=== PATIENT | female | born 1950 | race Caucasian/White ===

== ENCOUNTER 2017-10-24 08:22 | Day surgery (SDC) | payer MEDICARE, BC ==
[~2017-10-24 08:22] MED LIST: Bupivacaine 0.75% 30 ML SDV ONE; EPINEPHrine 1 MG/ML SDV ONE; Ketamine 500 mg/10 ML MDV ONE; Lactated Ringers 1,000 ML IV SCH; Lidocaine 1% 14 ML ONE; Lidocaine 1%/Sod Bicarbonate in NS 8.4% 1 ML Syringe IDERM PRN; Midazolam 1 MG/ML 2 ML SDV ONE; Phenylephrine/Normal Saline 100 MCG/ML 10 ML Syringe ONE; Propofol 200 MG/20 ML SDV ONE; Ropivacaine 0.5% 5 MG/ML 30 ML SDV ONE; Sodium Chloride 0.9% 10 ML Syringe FLUSH PRN; fentaNYL 100 MCG/2 ML SDV ONE
[2017-10-24] MEDS ORDERED: Acetaminophen 325 MG Tab PO SCH (08:42)
[2017-10-24] MEDS ORDERED: Scopolamine 1.5 MG Transdermal Patch TOP ONE (08:42)
[2017-10-24] MEDS ORDERED: Pregabalin 25 MG Cap PO SCH (08:43)
[2017-10-24] MEDS ORDERED: oxyCODONE ER 10 MG TAB.ER PO SCH (08:43)
--- NOTE | 2017-10-24 09:03 | PCM.PREANE ---
Preanesthetic Assessment - Anesthesia/Transfusion/Family Hx Anesthesia History: Prior Anesthesia Reaction Type of Anesthesia Reaction: Excessive Nausea/Vomiting Family History of Anesthesia Reaction: No - Review of Systems General: No Symptoms Pulmonary: No Symptoms Cardiovascular: No Symptoms Gastrointestinal: No Symptoms Neurological: Pre-Existing Deficit (Chronic low back pain. Left side sciatica at times, none currently. ) Other: Reports: Anxiety - Physical Assessment NPO Status Date: 10/23/17 NPO Status Time: 23:30 Pulse: 76 O2 Sat by Pulse Oximetry: 97 Respiratory Rate: 16 Blood Pressure: 147/82 Temperature: 36.4 C Weight: 79.832 kg ASA Class: 2 Mental Status: Alert & Oriented x3 Airway Class: Mallampati = 2 Dentition: Reports: Normal Dentition Thyro-Mental Finger Breadths: 2 Mouth Opening Finger Breadths: 3 ROM/Head Extension: Limited/Partial (Limited extension, cervical neck fusion.) Lungs: Clear to Auscultation, Normal Respiratory Effort Cardiovascular: Regular Rate, Regular Rhythm - Lab Values: Laboratory Last Values MRSA (PCR) Negative 10/11/17 15:41 - Allergies Allergies/Adverse Reactions: Allergies Allergy/AdvReac Type Severity Reaction Status Date / Time amoxicillin [From Augmentin] Allergy "intoleranc Verified 10/21/17 14:03 e" clavulanic acid Allergy "intoleranc Verified 10/21/17 14:03 [From Augmentin] e" - Acknowledgements Anesthesia Type Planned: Spinal Pt an Appropriate Candidate for the Planned Anesthesia: Yes Alternatives and Risks of Anesthesia Discussed w Pt/Guardian: Yes Pt/Guardian Understands and Agrees with Anesthesia Plan: Yes Additional Comments: Peri is agreeable to a a spinal anesthetic. She has a spinal with her last total knee surgery. She understands it could aggravate her back pain. Discussed with Dr. Ang he is also agreeable with a spinal anesthetic. Peri does have significant PONV. 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 Neurological History: Other Dermatologic History: Lipomas to bilateral upper thighs sx - Past Surgical History HEENT Surgical History: Reports: None GI Surgical History: Reports: Cholecystectomy Neurological Surgical History: Reports: Other (See Below) Other Neurological Surgeries/Procedures: Cervical Disc Replacement Musculoskeletal Surgical History: Reports: Arthroscopic Knee Other Musculoskeletal Surgeries/Procedures:: L. TKA, R. CTR, R. Ulnar Nerve Sx, L. Knee Arthroscopy, Chronic Sciatica Left Side, Left Hip Pain Dermatological Surgical History: - HOME MEDS Home Medications: Home Meds Losartan/Hydrochlorothiazide [Losartan-HCTZ 50-12.5 MG] 1 tab PO DAILY 02/11/15 [History] Pantoprazole [ProTONIX] 40 mg PO DAILY PRN 02/11/15 [History] Celecoxib [CeleBREX] 100 mg PO DAILY 10/21/17 [History] LORazepam [Ativan] 1 mg PO ASDIRECTED PRN 10/21/17 [History] Potassium Chloride 20 meq PO DAILY 10/21/17 [History] Zolpidem Tartrate 10 mg PO DAILY 10/21/17 [History] - CURRENT (IN HOUSE) MEDS Current Meds: Current Medications Aspirin (Ecotrin) 325 mg PO BID [facility] Bisacodyl (Dulcolax) 5 mg PO DAILY PRN PRN Reason: Constipation Morphine Sulfate 8 mg/Epinephrine HCl 0.3 mg/Cefuroxime Sodium 750 mg/Ketorolac Tromethamine 30 mg/Sodium Chloride 27.9 ml 0 mg .XX ONETIME ONE Stop: 10/24/17 10:31 Cyclobenzaprine HCl (Flexeril) 10 mg PO TID PRN PRN Reason: Spasms Docusate Sodium (Colace) 100 mg PO BID [facility] Lactated Ringer's (Ringers, Lactated) 1,000 mls @ 125 mls/hr IV ASDIRECTED [facility] Stop: 10/24/17 23:00 Cefazolin Sodium/Dextrose 2 gm (/ Premix) 50 mls @ 100 mls/hr IV Q8H [facility] Stop: 10/24/17 23:44 Lidocaine/Sodium Bicarbonate (Buffered Lidocaine 1% In Ns 8.4%) 0.25 ml IDERM ONETIME PRN PRN Reason: Prior to IV Start Stop: 10/24/17 18:00 Magnesium Hydroxide (Milk Of Magnesia) 30 ml PO BID PRN PRN Reason: Constipation Morphine Sulfate (Morphine) 2 mg IVPUSH Q2H PRN PRN Reason: Breakthrough Pain Naloxone HCl (Narcan) 0.1 mg IVPUSH Q5M PRN PRN Reason: Oversedation Ondansetron HCl (Zofran) 4 mg IVPUSH Q6H PRN PRN Reason: Nausea/Vomiting Oxycodone/Acetaminophen (Percocet 325-5 Mg) 1 - 2 tab PO Q4H PRN PRN Reason: Pain Senna (Senna) 8.6 mg PO BID PRN PRN Reason: Constipation Sodium Chloride (Saline Flush) 10 ml FLUSH ASDIRECTED PRN PRN Reason: Keep Vein Open Stop: 10/24/17 18:00 Discontinued Medications Acetaminophen (Tylenol) 975 mg PO NOW [facility] Stop: 10/24/17 08:43 Last Admin: 10/24/17 08:58 Dose: 975 mg Bupivacaine HCl (Sensorcaine-Mpf 0.75%) Confirm Administered Dose 30 ml .ROUTE .STK-MED ONE Stop: 10/24/17 06:17 Bupivacaine HCl (Sensorcaine-Mpf 0.75%) Confirm Administered Dose 30 ml .ROUTE .STK-MED ONE Stop: 10/24/17 06:57 Epinephrine HCl (Adrenalin) Confirm Administered Dose 1 mg .ROUTE .STK-MED ONE Stop: 10/24/17 06:00 Fentanyl (Sublimaze) Confirm Administered Dose 100 mcg .ROUTE .STK-MED ONE Stop: 10/24/17 06:57 Lidocaine HCl (Xylocaine-Mpf 1%) Confirm Administered Dose 14 mls @ as directed .ROUTE .STK-MED ONE Stop: 10/24/17 06:57 Ketamine HCl (Ketalar) Confirm Administered Dose 500 mg .ROUTE .STK-MED ONE Stop: 10/24/17 08:03 Midazolam HCl (Versed 1 Mg/Ml) Confirm Administered Dose 2 mg .ROUTE .STK-MED ONE Stop: 10/24/17 07:59 Oxycodone HCl (Oxycontin) 10 mg PO ONETIME [facility] Stop: 10/24/17 08:44 Last Admin: 10/24/17 08:57 Dose: 10 mg Phenylephrine HCl (Phenylephrine In Ns 100 Mcg/Ml) Confirm Administered Dose 1 mg .ROUTE .STK-MED ONE Stop: 10/24/17 08:00 Pregabalin (Lyrica) 50 mg PO ONETIME [facility] Stop: 10/24/17 08:44 Last Admin: 10/24/17 08:58 Dose: 50 mg Propofol (Diprivan 20 Ml) Confirm Administered Dose 400 mg .ROUTE .STK-MED ONE Stop: 10/24/17 06:57 Ropivacaine (Naropin 0.5%) Confirm Administered Dose 30 ml .ROUTE .STK-MED ONE Stop: 10/24/17 06:00 Scopolamine (Transderm-Scop) 1.5 mg TOP ONETIME ONE Stop: 10/24/17 08:43 Last Admin: 10/24/17 08:57 Dose: 1.5 mg
[2017-10-24] MEDS ORDERED: Bupivacaine 0.25% 30 ML SDV ONE (09:12)
[2017-10-24] MEDS ORDERED: Vancomycin 1 GM SDV ONE (09:12)
[2017-10-24] MEDS ORDERED: Iodine/Sodium Iodide 2% Tincture 30 ML Bottle ONE (09:12)
[2017-10-24] MEDS ORDERED: ceFAZolin 1 GM Vial ONE (09:12)
[2017-10-24] MEDS ORDERED: Lactated Ringers 1,000 ML ONE ×2 (10:03→10:30)
[2017-10-24] MEDS ORDERED: fentaNYL 100 MCG/2 ML SDV IVPUSH PRN (10:08)
[2017-10-24] MEDS ORDERED: Ondansetron 4 MG/2 ML SDV IVPUSH PRN ×2 (10:08→11:00)
[2017-10-24] MEDS ORDERED: ePHEDrine 50 MG/ML SDV IVPUSH PRN (10:08)
[2017-10-24] MEDS ORDERED: HYDROmorphone 0.5 MG/0.5 ML Syringe IVPUSH PRN (10:08)
[2017-10-24] MEDS ORDERED: diphenhydrAMINE 50 MG/ML SDV IVPUSH PRN (10:08)
[2017-10-24] MEDS ORDERED: Phenylephrine 1 MG in Sodium Chloride 0.9% 10 ML IV SCH (10:15)
[2017-10-24] MEDS ORDERED: Morphine 8 MG, EPINEPHrine 0.3 MG, Cefuroxime 750 MG, Ketorolac 30 MG, Sodium Chloride ... ONE ×5 (10:30)
[2017-10-24] MEDS ORDERED: Morphine 2 MG/ML Syringe IVPUSH PRN (11:00)
[2017-10-24] MEDS ORDERED: Bisacodyl 5 MG Tab PO PRN (11:00)
[2017-10-24] MEDS ORDERED: Sennosides 8.6 MG Tab PO PRN (11:00)
[2017-10-24] MEDS ORDERED: Magnesium Hydroxide 400 MG/5 ML Susp 30 ML Cup PO PRN (11:00)
[2017-10-24] MEDS ORDERED: Naloxone 0.4 MG/ML SDV IVPUSH PRN (11:00)
[2017-10-24] MEDS ORDERED: Cyclobenzaprine 10 MG Tab PO PRN (11:00)
--- NOTE | 2017-10-24 11:37 | PCM.POSTAN ---
POST ANESTHESIA ASSESSMENT - MENTAL STATUS Mental Status: Alert - VITAL SIGNS Pulse Rate: 86 SaO2: 95 (2Lpm nasal cannula) Resp Rate: 11 Blood Pressure: 113/54 Temperature: 36.3 C - RESPIRATORY Respiratory Status: Respiratory Rate WNL, Airway Patent, O2 Saturation Stable, Supplemental Oxygen - CARDIOVASCULAR CV Status: Pulse Rate WNL, Blood Pressure Stable - GASTROINTESTINAL GI Status: No Symptoms - POST OP HYDRATION Hydration Status: Adequate & Stable
--- NOTE | 2017-10-24 12:16 | PCM.SN ---
- Free Text/Narrative Note: Left selective femoral nerve block at the adductor canal for post-procedure pain control under US guidance requested by Dr. Ang. Time Out: 1140 Start: 1200 End: 1200 Chart reviewed. Consent signed. Questions answered. Appropriate monitors applied. Time out performed. Left mid-shaft femur identified with ultrasound, scanning medially of femur, the femoral artery in the adductor canal visualized , and the femoral nerve located laterally to the artery. The skin was prepped lateral to the ultrasound probe with chlorahexadine times two. The 21ga 4 insulated block needle was inserted under direct ultrasound guidance into the adductor canal. 25mL of 0.5% ropivacaine with 1:200,000 epinephrine was injected circumferentially around the nerve with intermittent negative aspiration noted. Patient tolerated the procedure well. Sterile technique noted along with sterile gloves, mask, and sterile probe cover. See picture on progress note and vital signs on nurses notes. Block completed in PACU. Chel Gipson CRNA
[2017-10-24] MEDS ORDERED: Pantoprazole 40 MG Tab.CR PO PRN (13:10)
[2017-10-24] MEDS ORDERED: LORazepam 1 MG Tab PO PRN (13:10)
--- NOTE | 2017-10-24 13:13 | CR ---
Left knee: AP and lateral views of the left knee were obtained. Comparison: No prior knee study. Knee prosthesis is seen. Components are aligned. Underlying bony structures are intact. Soft tissue air is noted from the surgical procedure. Impression: 1. Satisfactory appearance of recently placed left knee prosthesis. Diagnostic code #2
[2017-10-24] MEDS: Acetaminophen/oxyCODONE 325-5 MG Tab PO PRN ×2 (15:43→20:23)
[2017-10-24] MEDS: ceFAZolin 2 GM in Premix Bag 1 BAG IV SCH (17:50)
--- NOTE | 2017-10-24 18:32 | PCM.CONS ---
H&P History of Present Illness - General Date of Service: 10/24/17 Admit Problem/Dx: Admission Diagnosis/Problem Admission Diagnosis/Problem Knee pain Source of Information: Patient, Provider History Limitations: Reports: No Limitations - History of Present Illness Initial Comments - Free Text/Narative: Peri is a 67 yo female patient of Dr. Ang who is post-operative day 0 of L knee patello femoral revision. Hospital medicine was consulted for post- operative medical care. At this time she is stable. Pain is controlled. She denies any chest pain, shortness of breath, palpitations, nausea, or vomiting. She carries a history of: Sciatica, hypokalemia, HTN, GERD, menopause. She is not a smoker. She is a full code. Her primary care provider is Dr. Robison. - Related Data Allergies/Adverse Reactions: Allergies Allergy/AdvReac Type Severity Reaction Status Date / Time amoxicillin [From Augmentin] Allergy "intoleranc Verified 10/21/17 14:03 e" clavulanic acid Allergy "intoleranc Verified 10/21/17 14:03 [From Augmentin] e" Home Medications: Home Meds Losartan/Hydrochlorothiazide [Losartan-HCTZ 50-12.5 MG] 1 tab PO DAILY 02/11/15 [History] Pantoprazole [ProTONIX] 40 mg PO DAILY PRN 02/11/15 [History] LORazepam [Ativan] 1 mg PO ASDIRECTED PRN 10/21/17 [History] Potassium Chloride 20 meq PO DAILY 10/21/17 [History] Zolpidem Tartrate 10 mg PO DAILY 10/21/17 [History] Acetaminophen/oxyCODONE [Percocet 325-5 MG] 1 - 2 tab PO Q6H PRN #60 tablet [Rx] Aspirin [Ecotrin] 325 mg PO BID #84 tab.ec 10/24/17 [Rx] Bisacodyl [Dulcolax] 5 mg PO DAILY PRN tablet 10/24/17 [Rx] Docusate Sodium [Colace] 100 mg PO BID cap 10/24/17 [Rx] Magnesium Hydroxide [Milk of Magnesia] 30 ml PO BID PRN cup 10/24/17 [Rx] Sennosides [Senna] 8.6 mg PO BID PRN tablet 10/24/17 [Rx] Past Medical History HEENT History: Reports: Impaired Vision Other HEENT History: Wears Cardiovascular History: Reports: Hypertension, Other (See Below) Other Cardiovascular History: Hypokalemia Gastrointestinal History: Reports: GERD 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 Neurological History: Other Dermatologic History: Lipomas to bilateral upper thighs sx - Past Surgical History HEENT Surgical History: Reports: None GI Surgical History: Reports: Cholecystectomy Neurological Surgical History: Reports: Other (See Below) Other Neurological Surgeries/Procedures: Cervical Disc Replacement Musculoskeletal Surgical History: Reports: Arthroscopic Knee Other Musculoskeletal Surgeries/Procedures:: L. TKA, R. CTR, R. Ulnar Nerve Sx, L. Knee Arthroscopy, Chronic Sciatica Left Side, Left Hip Pain Dermatological Surgical History: H&P Review of Systems - Review of Systems: Review Of Systems: See Below General: Reports: No Symptoms. Denies: Fever, Chills HEENT: Reports: No Symptoms Pulmonary: Reports: No Symptoms. Denies: Shortness of Breath, Pleuritic Chest Pain, Cough Cardiovascular: Reports: No Symptoms. Denies: Chest Pain, Palpitations, Dyspnea on Exertion Gastrointestinal: Reports: No Symptoms. Denies: Abdominal Pain, Diarrhea, Nausea, Vomiting Genitourinary: Reports: No Symptoms. Denies: Dysuria, Frequency, Burning, Pain , Urgency Musculoskeletal: Reports: No Symptoms. Denies: Leg Pain Skin: Reports: No Symptoms Psychiatric: Reports: No Symptoms Neurological: Reports: No Symptoms Hematologic/Lymphatic: Reports: No Symptoms Immunologic: Reports: No Symptoms Exam - Exam Exam: See Below - Vital Signs Vital Signs: Last Vital Signs Temp 97.8 F 10/24/17 13:03 Pulse 60 10/24/17 13:32 Resp 14 10/24/17 12:56 BP 128/49 L 10/24/17 13:32 Pulse Ox 98 10/24/17 13:32 Weight: 176 lb - Exam Quality Assessment: Supplemental Oxygen (2L nasal cannula) General: Alert, Oriented, Cooperative, Mild Distress HEENT: PERRLA, Hearing Intact, Mucosa Moist & Lena, Nares Patent, Normal Nasal Septum, Posterior Pharynx Clear, Conjunctiva Clear, EOMI, EACs Clear, TMs Clear Neck: Supple, Trachea Midline, 2 Lungs: Clear to Auscultation, Normal Respiratory Effort Cardiovascular: Regular Rate, Regular Rhythm GI/Abdominal Exam: Normal Bowel Sounds, Soft, Non-Tender, No Organomegaly, No Distention, No Abnormal Bruit, No Mass, Pelvis Stable (Female) Exam: Deferred Rectal (Female) Exam: Deferred Back Exam: Normal Inspection, Full Range of Motion, NT Extremities: Normal Inspection, Non-Tender, No Pedal Edema, Normal Capillary Refill, Limited Range of Motion (s/p L knee patello femoral revision) Peripheral Pulses: 2+: Posterior Tibial (L), Posterior Tibial (R), Dorsalis Pedis (L), Dorsalis Pedis (R) Skin: Warm, Dry, Intact, Other (bandage dry and intact) Neurological: Cranial Nerves Intact (grossly) Neuro Extensive - Mental Status: Alert, Oriented x3, Normal Mood/Affect, Normal Cognition Psychiatric: Alert, Normal Affect, Normal Mood - Patient Data Pawan Results Last 24 hrs: Microbiology 10/24/17 10:30 Gram Stain - Final Knee, Left 10/24/17 10:30 Gram Stain - Final Knee, Left 10/24/17 10:30 Gram Stain - Final Knee, Left 10/24/17 10:30 Gram Stain - Final Knee, Left Consult PN Assessment/Plan POD#: 0 Procedures: Procedures ASSAY OF AMYLASE (02/11/15) ASSAY OF CREATININE (11/27/13) ASSAY OF LIPASE (02/11/15) BONE IMAGING 3 PHASE (08/30/17) C-REACTIVE PROTEIN (09/21/17) COMPLETE CBC W/AUTO DIFF WBC (02/11/15) COMPREHEN METABOLIC PANEL (02/11/15) EMERGENCY DEPT VISIT (02/11/15) HYDRATE IV INFUSION ADD-ON (02/11/15) MRI JNT OF LWR EXTRE W/O DYE (11/27/13) MRI LUMBAR SPINE W/O DYE (09/26/17) RBC SED RATE AUTOMATED (09/21/17) ROUTINE VENIPUNCTURE (09/21/17) THER/PROPH/DIAG IV INF INIT (02/11/15) TX/PRO/DX INJ NEW DRUG ADDON (02/11/15) TX/PRO/DX INJ 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 DRUG 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) URINALYSIS AUTO W/SCOPE (02/11/15) X-RAY BEND ONLY L-S SPINE (07/20/13) X-RAY EXAM L-S SPINE 2/3 VWS (03/14/17) X-RAY EXAM OF PELVIS (03/14/17) (1) Status post revision of total replacement of left knee SNOMED Code(s): 961909380435604, 988771518940656 Code(s): Z96.652 - PRESENCE OF LEFT ARTIFICIAL KNEE JOINT Priority: High Current Visit: Yes Problem List Initiated/Reviewed/Updated: Yes Plan: I/P: Acute: S/P left knee patello femoral revision- post-operative day 0 -DVT prophylaxis and pain management per primary care team -PT/OT -IS/RT -Monitor oxygen saturation -Titrate oxygen as needed -Vital signs stable -Monitor labs Osteoarthritis of knee -Pain management per primary care team Chronic: Sciatica Hypokalemia HTN GERD Menopause Plan: CM for discharge planning GI prophylaxis: Protonix DVT/PE prophylaxis: ANKIT fam, SCD, ASA Home medications as indicated Other orders as listed above Routine AM labs She is a full code. Her PCP is Dr. Robison. Thank you for allowing us to participate in the care of this patient!!
[2017-10-24] MEDS: Docusate Sodium 100 MG Cap PO SCH (20:24)
[2017-10-25] MEDS: ceFAZolin 2 GM in Premix Bag 1 BAG IV SCH ×2 (02:30→10:08)
[2017-10-25] MEDS: Acetaminophen/oxyCODONE 325-5 MG Tab PO PRN ×3 (03:10→14:28)
--- NOTE | 2017-10-25 07:29 | PCM.SURGPN ---
- General Info Date of Service: 10/25/17 Functional Status: Reports: Pain Controlled, Tolerating Diet, Ambulating, Urinating, Incentive Spirometry - Review of Systems Musculoskeletal: Reports: Other (The pt states she is prepared for discharge to home.) - Patient Data Vitals - Most Recent: Last Vital Signs Temp 97.9 F 10/24/17 15:28 Pulse 63 10/24/17 20:02 Resp 17 10/24/17 15:28 BP 109/59 L 10/24/17 20:02 Pulse Ox 95 10/24/17 20:02 Weight - Most Recent: 176 lb I&O - Last 24 Hours: Intake & Output 10/24/17 10/25/17 10/25/17 22:59 06:59 14:59 Intake Total 360 Balance 360 Lab Results Last 24 Hrs: Laboratory Results - last 24 hr 10/25/17 Range/Units 05:38 WBC 6.29 (3.98-10.04) K/mm3 RBC 3.92 L (3.98-5.22) M/mm3 Hgb 11.4 (11.2-15.7) gm/L Hct 36.0 (34.1-44.9) % MCV 91.8 (79.4-94.8) fl MCH 29.1 (25.6-32.2) pg MCHC 31.7 L (32.2-35.5) g/dl RDW Std Deviation 49.2 H (36.4-46.3) fL Plt Count 256 (182-369) K/mm3 MPV 9.4 (9.4-12.3) fl Pawan Results Last 24 Hrs: Microbiology 10/24/17 10:30 Gram Stain - Final Knee, Left Anaerobic Culture - Preliminary NO GROWTH AFTER 1 DAY 10/24/17 10:30 Gram Stain - Final Knee, Left Anaerobic Culture - Preliminary NO GROWTH AFTER 1 DAY 10/24/17 10:30 Gram Stain - Final Knee, Left Anaerobic Culture - Preliminary NO GROWTH AFTER 1 DAY 10/24/17 10:30 Gram Stain - Final Knee, Left Anaerobic Culture - Preliminary NO GROWTH AFTER 1 DAY Med Orders - Current: Current Medications Aspirin (Ecotrin) 325 mg PO BID [facility] Bisacodyl (Dulcolax) 5 mg PO DAILY PRN PRN Reason: Constipation Cyclobenzaprine HCl (Flexeril) 10 mg PO TID PRN PRN Reason: Spasms Docusate Sodium (Colace) 100 mg PO BID [facility] Last Admin: 10/24/17 20:24 Dose: 100 mg Hydrochlorothiazide (Hydrochlorothiazide) 12.5 mg PO DAILY [facility] Cefazolin Sodium/Dextrose 2 gm (/ Premix) 50 mls @ 100 mls/hr IV Q8H [facility] Stop: 10/25/17 10:29 Last Admin: 10/25/17 02:30 Dose: 100 mls/hr Losartan Potassium (Cozaar) 50 mg PO DAILY [facility] Magnesium Hydroxide (Milk Of Magnesia) 30 ml PO BID PRN PRN Reason: Constipation Morphine Sulfate (Morphine) 2 mg IVPUSH Q2H PRN PRN Reason: Breakthrough Pain Naloxone HCl (Narcan) 0.1 mg IVPUSH Q5M PRN PRN Reason: Oversedation Ondansetron HCl (Zofran) 4 mg IVPUSH Q6H PRN PRN Reason: Nausea/Vomiting Oxycodone/Acetaminophen (Percocet 325-5 Mg) 1 - 2 tab PO Q4H PRN PRN Reason: Pain Last Admin: 10/25/17 03:10 Dose: 1 tab Pantoprazole Sodium (Protonix) 40 mg PO DAILY PRN PRN Reason: Abdominal Pain Potassium Chloride (Klor-Con M20) 20 meq PO DAILY [facility] Senna (Senna) 8.6 mg PO BID PRN PRN Reason: Constipation Zolpidem Tartrate (Ambien) 10 mg PO BEDTIME [facility] Discontinued Medications Acetaminophen (Tylenol) 975 mg PO NOW [facility] Stop: 10/24/17 08:43 Last Admin: 10/24/17 08:58 Dose: 975 mg Bupivacaine HCl (Sensorcaine-Mpf 0.75%) Confirm Administered Dose 30 ml .ROUTE .STK-MED ONE Stop: 10/24/17 06:17 Bupivacaine HCl (Sensorcaine-Mpf 0.75%) Confirm Administered Dose 30 ml .ROUTE .STK-MED ONE Stop: 10/24/17 06:57 Bupivacaine HCl (Marcaine 0.25%) Confirm Administered Dose 30 ml .ROUTE .STK- MED ONE Stop: 10/24/17 09:13 Last Admin: 10/24/17 10:57 Dose: 20 ml Cefazolin Sodium (Ancef) Confirm Administered Dose 2 gm .ROUTE .STK-MED ONE Stop: 10/24/17 09:13 Last Admin: 10/24/17 10:51 Dose: 2 gm Morphine Sulfate 8 mg/Epinephrine HCl 0.3 mg/Cefuroxime Sodium 750 mg/Ketorolac Tromethamine 30 mg/Sodium Chloride 27.9 ml 0 mg .XX ONETIME ONE Stop: 10/24/17 10:31 Last Admin: 10/24/17 10:56 Dose: 788.3 mg Diphenhydramine HCl (Benadryl) 25 mg IVPUSH Q6H PRN PRN Reason: pruritis Stop: 10/24/17 12:30 Ephedrine Sulfate (Ephedrine Sulfate) 5 mg IVPUSH ASDIRECTED PRN PRN Reason: Hypotension Stop: 10/24/17 12:30 Epinephrine HCl (Adrenalin) Confirm Administered Dose 1 mg .ROUTE .STK-MED ONE Stop: 10/24/17 06:00 Fentanyl (Sublimaze) Confirm Administered Dose 100 mcg .ROUTE .STK-MED ONE Stop: 10/24/17 06:57 Fentanyl (Sublimaze) 50 mcg IVPUSH Q5M PRN PRN Reason: Pain Stop: 10/24/17 12:30 Hydromorphone HCl (Dilaudid) 0.5 mg IVPUSH ONETIME PRN PRN Reason: Pain Stop: 10/24/17 12:30 Lactated Ringer's (Ringers, Lactated) 1,000 mls @ 125 mls/hr IV ASDIRECTED [facility] Stop: 10/24/17 23:00 Last Admin: 10/24/17 08:50 Dose: 125 mls/hr Lidocaine HCl (Xylocaine-Mpf 1%) Confirm Administered Dose 14 mls @ as directed .ROUTE .STK-MED ONE Stop: 10/24/17 06:57 Lactated Ringer's (Ringers, Lactated) Confirm Administered Dose 1,000 mls @ as directed .ROUTE .STK-MED ONE Stop: 10/24/17 10:04 Phenylephrine HCl 1 mg/ Sodium (Chloride) 10.1 mls @ 1 mls/sec IV TITRATE [facility]; Protocol Stop: 10/24/17 12:30 Lactated Ringer's (Ringers, Lactated) Confirm Administered Dose 1,000 mls @ as directed .ROUTE .STK-MED ONE Stop: 10/24/17 10:31 Iodine (Iodine 2% Mild Tincture) Confirm Administered Dose 30 ml .ROUTE .STK- MED ONE Stop: 10/24/17 09:13 Last Admin: 10/24/17 10:48 Dose: 18 ml Ketamine HCl (Ketalar) Confirm Administered Dose 500 mg .ROUTE .STK-MED ONE Stop: 10/24/17 08:03 Lidocaine/Sodium Bicarbonate (Buffered Lidocaine 1% In Ns 8.4%) 0.25 ml IDERM ONETIME PRN PRN Reason: Prior to IV Start Stop: 10/24/17 18:00 Last Admin: 10/24/17 08:50 Dose: 0.25 ml Lorazepam (Ativan) 1 mg PO ASDIRECTED PRN PRN Reason: Anxiety Midazolam HCl (Versed 1 Mg/Ml) Confirm Administered Dose 2 mg .ROUTE .STK-MED ONE Stop: 10/24/17 07:59 Ondansetron HCl (Zofran) 4 mg IVPUSH ONETIME PRN PRN Reason: Nausea/Vomiting Stop: 10/24/17 12:30 Oxycodone HCl (Oxycontin) 10 mg PO ONETIME [facility] Stop: 10/24/17 08:44 Last Admin: 10/24/17 08:57 Dose: 10 mg Phenylephrine HCl (Phenylephrine In Ns 100 Mcg/Ml) Confirm Administered Dose 1 mg .ROUTE .STK-MED ONE Stop: 10/24/17 08:00 Pregabalin (Lyrica) 50 mg PO ONETIME [facility] Stop: 10/24/17 08:44 Last Admin: 10/24/17 08:58 Dose: 50 mg Propofol (Diprivan 20 Ml) Confirm Administered Dose 400 mg .ROUTE .STK-MED ONE Stop: 10/24/17 06:57 Ropivacaine (Naropin 0.5%) Confirm Administered Dose 30 ml .ROUTE .STK-MED ONE Stop: 10/24/17 06:00 Scopolamine (Transderm-Scop) 1.5 mg TOP ONETIME ONE Stop: 10/24/17 08:43 Last Admin: 10/24/17 08:57 Dose: 1.5 mg Sodium Chloride (Saline Flush) 10 ml FLUSH ASDIRECTED PRN PRN Reason: Keep Vein Open Stop: 10/24/17 18:00 Tranexamic Acid (Cyklokapron) Confirm Administered Dose 1,000 mg .ROUTE .STK- MED ONE Stop: 10/24/17 09:13 Last Admin: 10/24/17 11:03 Dose: 1,000 mg Vancomycin HCl (Vancomycin) Confirm Administered Dose 1 gm .ROUTE .STK-MED ONE Stop: 10/24/17 09:13 Last Admin: 10/24/17 10:59 Dose: 1 gm - Exam Wound/Incisions: Dressing Dry and Intact General: Alert, Cooperative, No Acute Distress Lungs: Normal Respiratory Effort Extremities: Other (NVS intact for LLE. Abad's negative.) - Problem List Review Problem List Initiated/Reviewed/Updated: Yes - My Orders Last 24 Hours: Active Orders 24 hr Category Date Time Status Patient Status [ADT] Routine ADT 10/24/17 07:14 Active Ambulate [RC] PER UNIT ROUTINE Care 10/24/17 07:14 Active Communication Order [RC] ASDIRECTED Care 10/24/17 12:58 Active Communication Order [RC] ROUTINE Care 10/24/17 10:07 Active Cooling Warming Measures [RC] ASDIRECTED Care 10/24/17 10:07 Inactive May Shower [RC] ASDIRECTED Care 10/24/17 07:14 Active Notify Provider Consults [RC] ASDIRECTED Care 10/24/17 07:17 Active Notify Provider [RC] ASDIRECTED Care 10/24/17 10:08 Active Oxygen Therapy [RC] ASDIRECTED Care 10/24/17 10:07 Active Oxygen Therapy [RC] PRN Care 10/24/17 07:14 Active Pulse Oximetry [RC] ASDIRECTED Care 10/24/17 10:07 Active RT Incentive Spirometry [RC] Q1HWA Care 10/24/17 07:13 Active Ready for Discharge [RC] PER UNIT ROUTINE Care 10/25/17 07:23 Ordered Up to Chair [RC] ASDIRECTED Care 10/24/17 07:14 Active Vital Signs [RC] PER UNIT ROUTINE Care 10/24/17 07:14 Active Vital Signs [RC] Q15M Care 10/24/17 10:07 Inactive Consult to Physician [CONS] Routine Cons 10/24/17 07:14 Active OT Evaluation and Treatment [CONS] Routine Cons 10/24/17 07:13 Active PT Evaluation and Treatment [CONS] Routine Cons 10/24/17 07:13 Active Regular Diet [DIET] Diet 10/24/17 Lunch Active COMPREHENSIVE METABOLIC PN,CMP [CHEM] AM Lab 10/25/17 05:38 Received CULTURE ANAEROBIC + SMEAR [RM] Routine Lab 10/24/17 10:30 Results CULTURE ANAEROBIC + SMEAR [RM] Routine Lab 10/24/17 10:30 Results CULTURE ANAEROBIC + SMEAR [RM] Routine Lab 10/24/17 10:30 Results CULTURE ANAEROBIC + SMEAR [RM] Routine Lab 10/24/17 10:30 Results Acetaminophen/oxyCODONE [Percocet 325-5 MG] Med 10/24/17 11:00 Active 1 - 2 tab PO Q4H PRN Aspirin [Ecotrin] Med 10/25/17 09:00 Active 325 mg PO BID Bisacodyl [Dulcolax] Med 10/24/17 11:00 Active 5 mg PO DAILY PRN Cyclobenzaprine [Flexeril] Med 10/24/17 11:00 Active 10 mg PO TID PRN Docusate Sodium [Colace] Med 10/24/17 21:00 Active 100 mg PO BID Hydrochlorothiazide Med 10/25/17 09:00 Active 12.5 mg PO DAILY Losartan [Cozaar] Med 10/25/17 09:00 Active 50 mg PO DAILY Magnesium Hydroxide [Milk of Magnesia] Med 10/24/17 11:00 Active 30 ml PO BID PRN Morphine Med 10/24/17 11:00 Active 2 mg IVPUSH Q2H PRN Naloxone [Narcan] Med 10/24/17 11:00 Active 0.1 mg IVPUSH Q5M PRN Ondansetron [Zofran] Med 10/24/17 11:00 Active 4 mg IVPUSH Q6H PRN Pantoprazole [ProTONIX] Med 10/24/17 13:10 Active 40 mg PO DAILY PRN Potassium Chloride [Klor-Con M20] Med 10/25/17 09:00 Active 20 meq PO DAILY Sennosides [Senna] Med 10/24/17 11:00 Active 8.6 mg PO BID PRN Zolpidem [Ambien] Med 10/25/17 21:00 Active 10 mg PO BEDTIME ceFAZolin [Ancef] 2 gm Med 10/24/17 18:00 Active Premix Bag 1 bag IV Q8H Antiembolic Hose [OM.PC] Per Unit Routine Oth 10/24/17 07:16 Ordered Ice Therapy [OM.PC] Per Unit Routine Oth 10/24/17 07:16 Ordered Sequential Compression Device [OM.PC] Per Unit Routine Oth 10/24/17 07:13 Ordered Resuscitation Status Routine Resus Stat 10/24/17 07:14 Ordered Medication Orders Aspirin (Ecotrin) 325 mg PO BID [facility] Bisacodyl (Dulcolax) 5 mg PO DAILY PRN PRN Reason: Constipation Cyclobenzaprine HCl (Flexeril) 10 mg PO TID PRN PRN Reason: Spasms Docusate Sodium (Colace) 100 mg PO BID [facility] Last Admin: 10/24/17 20:24 Dose: 100 mg Hydrochlorothiazide (Hydrochlorothiazide) 12.5 mg PO DAILY [facility] Cefazolin Sodium/Dextrose 2 gm (/ Premix) 50 mls @ 100 mls/hr IV Q8H [facility] Stop: 10/25/17 10:29 Last Admin: 10/25/17 02:30 Dose: 100 mls/hr Infusion: 10/24/17 18:20 Dose: 100 mls/hr Admin: 10/24/17 17:50 Dose: 100 mls/hr Losartan Potassium (Cozaar) 50 mg PO DAILY [facility] Magnesium Hydroxide (Milk Of Magnesia) 30 ml PO BID PRN PRN Reason: Constipation Morphine Sulfate (Morphine) 2 mg IVPUSH Q2H PRN PRN Reason: Breakthrough Pain Naloxone HCl (Narcan) 0.1 mg IVPUSH Q5M PRN PRN Reason: Oversedation Ondansetron HCl (Zofran) 4 mg IVPUSH Q6H PRN PRN Reason: Nausea/Vomiting Oxycodone/Acetaminophen (Percocet 325-5 Mg) 1 - 2 tab PO Q4H PRN PRN Reason: Pain Last Admin: 10/25/17 03:10 Dose: 1 tab Admin: 10/24/17 20:23 Dose: 1 tab Admin: 10/24/17 15:43 Dose: 1 tab Pantoprazole Sodium (Protonix) 40 mg PO DAILY PRN PRN Reason: Abdominal Pain Potassium Chloride (Klor-Con M20) 20 meq PO DAILY [facility] Senna (Senna) 8.6 mg PO BID PRN PRN Reason: Constipation Zolpidem Tartrate (Ambien) 10 mg PO BEDTIME [facility] - Assessment Assessment (Free Text/Narrative):: POD#1 - s/p revision of patella s/p TKA arthroplasty - Plan Plan (Free Text/Narrative):: 1. Discharge to home today if cleared by Hospitalist service and therapies. 2. Percocet and ASA rx provided. 3. f/u at Outpatient Clinic next week. 4. Outpatient P.T. The pt's case was discussed with Dr. Ang.
--- NOTE | 2017-10-25 07:38 | PCM.SN ---
- Free Text/Narrative Note: Patient was seen and examined at bedside. She woke up at 3 AM due to pain but since then her pain level has significantly improved. She has no other issues or complaints. Her morning labs are fairly unremarkable. Her Hgb is stable at 11.4. She was hypotensive post surgery yesterday but overnight up until this morning, she has been in the borderline low range. HRs and O2 sats for the most part are fairly stable. Overall she looks clinically stable. We will recommend to hold off her AM BP meds and to give less narcotics to prevent further drop in her pressures.
[2017-10-25] MEDS ORDERED: Aspirin 325 MG Tab.EC PO SCH (09:00)
[2017-10-25] MEDS ORDERED: Hydrochlorothiazide 12.5 MG Cap PO SCH (09:00)
[2017-10-25] MEDS ORDERED: Potassium Chloride 20 MEQ Tab.ER PO SCH (09:00)
[2017-10-25] MEDS ORDERED: Losartan 25 MG Tab PO SCH (09:00)
--- NOTE | 2017-10-25 09:42 | PCM48HPAN ---
Post Anesthesia Note - EVALUATION WITHIN 48HRS OF ANESTHETIC Vital Signs in Normal Range: Yes Patient Participated in Evaluation: Yes Respiratory Function Stable: Yes Airway Patent: Yes Cardiovascular Function Stable: Yes Hydration Status Stable: Yes Pain Control Satisfactory: Yes Nausea and Vomiting Control Satisfactory: Yes Mental Status Recovered: Yes - COMMENTS/OBSERVATIONS Free Text/Narrative:: patient denies any anesthesia complications
[2017-10-25] MEDS: Docusate Sodium 100 MG Cap PO SCH (09:53)
[2017-10-25 15:53] VITALS: BP 106/50
[2017-10-25] MEDS ORDERED: Zolpidem 10 MG Tab PO SCH (21:00)
--- NOTE | 2017-11-02 09:12 | PCM.OPNOTE ---
- General Post-Op/Procedure Note Date of Surgery/Procedure: 10/24/17 Operative Procedure(s): revision of patellar component left total knee Pre Op Diagnosis: painful left total knee arthroplasty Post-Op Diagnosis: Same Anesthesia Technique: Local, MAC, Spinal Primary Surgeon: Rubén Ang Anesthesia Provider: Chel Gipson Solution Spec: Marilin Austin Solution Spec: Gina Ribeiro EBCarina in mLs: 5 Complications: None Condition: Good
--- NOTE | 2017-11-02 14:28 | OR ---
DATE OF OPERATION: 10/24/2017 SURGEON: Rubén Ang MD OPERATION PERFORMED: Revision of patellar component, left total knee. PREOPERATIVE DIAGNOSIS: Painful left total knee arthroplasty. POSTOPERATIVE DIAGNOSIS: Painful left total knee arthroplasty. ANESTHESIA: Local MAC with spinal. ANESTHESIA PROVIDER: Chel Gipson CRNA ASSISTANTS: 1. Marilin Austin PA-C. 2. Gina Ribeiro LPN. ESTIMATED BLOOD LOSS: 5 mL. COMPLICATIONS: None. CONDITION: Stable. IMPLANTS: Manuela size 32 x 10 mm asymmetric patella. DESCRIPTION OF PROCEDURE: The patient was taken back to the operating room theater where after adequate anesthesia, the patient's left lower extremity had a nonsterile tourniquet applied and was then sterilely prepped and draped in the usual sterile fashion. OR time-out was performed. The patient received 2 g of IV Ancef. At this time, left lower extremity was exsanguinated. Tourniquet was insufflated to 250 mmHg. At this time, the previous incision was utilized and this was taken down to the fascia, then the medial parapatellar arthrotomy was created. At this time, the patient was noted to have an effusion. There were no signs of infection, but at this time, we could take no real biopsies as well as cultures of the knee to make sure that there was no infection. The patient was noted to have significant infrapatellar adhesions. These were then resected out. There was noted to be a large amount of scar tissue over the patella and there was noted to be significant rigid bone noted on the lateral facet of the patella that was rubbing on the lateral femoral condyle. At this time, the previous patellar button was resected. The patella measured 16 and was resected to a 13. The previous polyethylene was all completely removed and the cement with the cut was below the level of cement. At this time, rest of the components were visualized. There were no signs of osteolysis or loosening of the femoral or the tibial components, and the polyethylene was in good condition with no signs of wear. At this time, a trial 32 x 10 mm patella was placed and the patient's patella was tracking centrally with no signs of loosening or instability or subluxation. At this time, a lateral facetectomy was then also performed of the patella. The cement was mixed on the back table. Once this was ready, a 32 x 10 mm asymmetric Manuela patella was cemented into place. This was then held. 3 L of Ancef with pulse lavage irrigation was irrigated through the knee along with 1 L of dilute Betadine solution. Periarticular injection was then completed. Once the cement had hardened, the clamp was taken off. The patient's patella was tracking centrally. A #2 barbed suture was used for closure of the medial parapatellar arthrotomy. A 2-0 elio suture was used for closure subcutaneously, and Monocryl and Prineo were used for the skin. The patient was placed in a sterile soft dressing and sent to the PACU in stable condition. ERIC /[id number]
== END 2017-10-25 16:21 | disposition home or self-care (01) ==
LOC: JD.MS 08:22 → JD.SDS 08:22 → UNDOADMIN 08:22 → EDSTATUS 11:00 → JD.MS 12:47 → JD.SDS 10-25 08:22 → UNDODISIN 10-25 16:21
PROVIDERS: ATTEND Orthopaedic Surgery
DX: T84.84XA Pain due to internal orthopedic prosthetic devices, implants and grafts, initial encounter (principal); M23.8X2 Other internal derangements of left knee; I10 Essential (primary) hypertension; K21.9 Gastro-esophageal reflux disease without esophagitis; Z79.899 Other long term (current) drug therapy; Z88.0 Allergy status to penicillin; Z88.1 Allergy status to other antibiotic agents
CPT/HCPCS: 27486; 36415; 64447; 73560; 80053; 85027; 87075; 87205; 87641; 97110; 97116; 97161; 97165; 97535; A9270; C1713; C1776; J0171; J0690; J0697; J1885; J2250; J2270; J2370; J2405; J2704; J2795; J3010; J3370; J3490; J7120; 01400; 64450; J2001

== ENCOUNTER 2018-07-11 19:57 | Emergency (ER) | payer MEDICARE, BC ==
[2018-07-11 20:05] VITALS: BP 148/79
[2018-07-11] MEDS ORDERED: Sodium Chloride 0.9% 10 ML Syringe FLUSH PRN (20:14)
[2018-07-11] MEDS ORDERED: Sodium Chloride 0.9% 1,000 ML IV STA (20:14)
[2018-07-11] MEDS ORDERED: Ondansetron 4 MG/2 ML SDV IVPUSH ONE (20:14)
[2018-07-11] MEDS ORDERED: HYDROmorphone 1 MG/ML Syringe IVPUSH ONE (21:17)
[2018-07-11] MEDS ORDERED: Sodium Chloride 0.9% 1,000 ML IV ONE (21:55)
[2018-07-11] MEDS ORDERED: Albuterol/Ipratropium 3.0-0.5 MG/3 ML Neb Soln NEB ONE (21:55)
--- NOTE | 2018-07-11 22:47 | EDM.PDOC ---
ED HPI GENERAL MEDICAL PROBLEM - General Chief Complaint: Gastrointestinal Problem Stated Complaint: DIARRHEA VOMITING Time Seen by Provider: 07/11/18 20:08 Source of Information: Reports: Patient, Family History Limitations: Reports: No Limitations - History of Present Illness INITIAL COMMENTS - FREE TEXT/NARRATIVE: The patient presents with a cough, nausea, vomiting, diarrhea and abdominal pain. She has had a cough for over a week. She has been on antibiotics for about a week. She was diagnosed with pneumonia a week ago. Last night she started having nausea, vomiting and diarrhea. She could not keep anything down. She also had some leg cramps last night and she feels like she is dehydrated. The patient also says down in [place] they did a swab and she was positive for RSV. She has some chest pressure on the left side. She has fever and chills. She does feel short of breath at times. She does not have a history of asthma or COPD. She does not smoke. She did have abdominal cramps but that is better. She has no dysuria. Onset: Gradual Duration: Week(s): Location: Reports: Chest, Abdomen Quality: Reports: Other (cramp) Severity: Moderate Improves with: Reports: None Worsens with: Reports: None Associated Symptoms: Reports: Chest Pain, Cough, Fever/Chills, Nausea/Vomiting, Shortness of Breath. Denies: Headaches - Related Data Allergies Allergy/AdvReac Type Severity Reaction Status Date / Time amoxicillin [From Augmentin] Allergy "intoleranc Verified 07/11/18 20:05 e" clavulanic acid Allergy "intoleranc Verified 07/11/18 20:05 [From Augmentin] e" Home Meds: Home Meds Losartan/Hydrochlorothiazide [Losartan-HCTZ 50-12.5 MG] 1 tab PO DAILY 02/11/15 [History] Pantoprazole [ProTONIX] 40 mg PO DAILY PRN 02/11/15 [History] LORazepam [Ativan] 1 mg PO ASDIRECTED PRN 10/21/17 [History] Potassium Chloride 20 meq PO DAILY 10/21/17 [History] Zolpidem Tartrate 10 mg PO DAILY 10/21/17 [History] Acetaminophen/oxyCODONE [Percocet 325-5 MG] 1 - 2 tab PO Q6H PRN #60 tablet [Rx] Aspirin [Ecotrin] 325 mg PO BID #84 tab.ec 10/24/17 [Rx] Bisacodyl [Dulcolax] 5 mg PO DAILY PRN tablet 10/24/17 [Rx] Docusate Sodium [Colace] 100 mg PO BID cap 10/24/17 [Rx] Magnesium Hydroxide [Milk of Magnesia] 30 ml PO BID PRN cup 10/24/17 [Rx] Sennosides [Senna] 8.6 mg PO BID PRN tablet 10/24/17 [Rx] Past Medical History HEENT History: Reports: Impaired Vision Other HEENT History: Wears Cardiovascular History: Reports: Hypertension, Other (See Below) Other Cardiovascular History: Hypokalemia Gastrointestinal History: Reports: GERD 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 Other Dermatologic History: Lipomas to bilateral upper thighs sx - Past Surgical History HEENT Surgical History: Reports: None GI Surgical History: Reports: Cholecystectomy Neurological Surgical History: Reports: Other (See Below) Other Neurological Surgeries/Procedures: Cervical Disc Replacement Musculoskeletal Surgical History: Reports: Arthroscopic Knee, Knee Replacement Other Musculoskeletal Surgeries/Procedures:: L. TKA, R. CTR, R. Ulnar Nerve Sx, L. Knee Arthroscopy, Chronic Sciatica Left Side, Left Hip Pain Social & Family History - Tobacco Use Smoking Status *Q: Never Smoker Second Hand Smoke Exposure: No - Caffeine Use Caffeine Use: Reports: None - Recreational Drug Use Recreational Drug Use: No ED ROS GENERAL - Review of Systems Review Of Systems: See Below Constitutional: Reports: No Symptoms HEENT: Reports: No Symptoms Respiratory: Reports: Shortness of Breath, Cough Cardiovascular: Reports: Chest Pain Endocrine: Reports: No Symptoms GI/Abdominal: Reports: Abdominal Pain, Diarrhea, Nausea, Vomiting : Reports: No Symptoms Musculoskeletal: Reports: No Symptoms ED EXAM, GI/ABD - Physical Exam Exam: See Below Exam Limited By: No Limitations General Appearance: Alert, No Apparent Distress Ears: Normal External Exam Nose: Normal Inspection Head: Atraumatic, Normocephalic Neck: Normal Inspection, Supple, Non-Tender Respiratory/Chest: No Respiratory Distress, Lungs Clear, Normal Breath Sounds, Decreased Breath Sounds (slight) Cardiovascular: Regular Rate, Rhythm, No Edema, No Murmur GI/Abdominal Exam: Soft, Non-Tender, No Organomegaly, No Mass Back Exam: Normal Inspection Extremities: Normal Inspection Course - Vital Signs Last Recorded V/S: Last Vital Signs Temp 98.7 F 07/11/18 20:03 Pulse 100 07/11/18 20:03 Resp 16 07/11/18 20:03 BP 148/79 H 07/11/18 20:03 Pulse Ox 92 L 07/11/18 21:56 - Orders/Labs/Meds Orders: Active Orders 24 hr Category Date Time Status Peripheral IV Care [RC] . DIRECTED Care 07/11/18 20:14 Active RT Aerosol Therapy [RC] ASDIRECTED Care 07/11/18 21:56 Active RT Post Treatment Assessment [RC] Click to Edit Care 07/11/18 23:03 Ordered RT Pre-Treatment Assessment [RC] Click to Edit Care 07/11/18 23:03 Ordered Chest 2V [CR] Stat Exams 07/11/18 20:14 Taken Albuterol [Proventil HFA] Med 07/11/18 23:02 Once 2 gm INH ONETIME ONE Codeine/Promethazine [Phenergan with Codeine] Med 07/11/18 23:01 Once 10 ml PO ONETIME ONE Sodium Chloride 0.9% [Saline Flush] Med 07/11/18 20:14 Active 10 ml FLUSH ASDIRECTED PRN cefTRIAXone [Rocephin] 1 gm Med 07/11/18 23:02 Ordered Sodium Chloride 0.9% [Normal Saline] 100 ml IV ONETIME ED Antiemetic Medication Reflex [OM.PC] Stat Oth 07/11/18 20:14 Ordered Peripheral IV Insertion Adult [OM.PC] Stat Oth 07/11/18 20:14 Ordered Medication Orders Sodium Chloride (Saline Flush) 10 ml FLUSH ASDIRECTED PRN PRN Reason: Keep Vein Open Last Admin: 07/11/18 20:30 Dose: 10 ml Labs: Laboratory Tests 07/11/18 07/11/18 Range/Units 20:25 20:25 WBC 7.90 (3.98-10.04) K/mm3 RBC 4.60 (3.98-5.22) M/mm3 Hgb 13.2 (11.2-15.7) gm/L Hct 40.3 (34.1-44.9) % MCV 87.6 (79.4-94.8) fl MCH 28.7 (25.6-32.2) pg MCHC 32.8 (32.2-35.5) g/dl RDW Std Deviation 46.5 H (36.4-46.3) fL Plt Count 328 (182-369) K/mm3 MPV 8.8 L (9.4-12.3) fl Neut % (Auto) 86.3 H (34.0-71.1) % Lymph % (Auto) 8.7 L (19.3-51.7) % [place] % (Auto) 4.8 (4.7-12.5) % Eos % (Auto) 0.1 L (0.7-5.8) Baso % (Auto) 0.0 L (0.1-1.2) % Neut # (Auto) 6.81 H (1.56-6.13) K/mm3 Lymph # (Auto) 0.69 L (1.18-3.74) K/mm3 [place] # (Auto) 0.38 H (0.24-0.36) K/mm3 Eos # (Auto) 0.01 L (0.04-0.36) K/mm3 Baso # (Auto) 0.00 L (0.01-0.08) K/mm3 Manual Slide Review Normal smear Sodium 134 L (136-145) mEq/L Potassium 3.1 L (3.5-5.1) mEq/L Chloride 98 (98-107) mEq/L Carbon Dioxide 27 (21-32) mEq/L Anion Gap 12.1 (5-15) BUN 18 (7-18) mg/dL Creatinine 1.1 H (0.55-1.02) mg/dL Est Cr Clr Drug Dosing 47.10 mL/min Estimated GFR (MDRD) 50 (>60) mL/min BUN/Creatinine Ratio 16.4 (14-18) Glucose 106 (80-115) mg/dL Calcium 9.1 (8.5-10.1) mg/dL Magnesium 1.6 L (1.8-2.4) mg/dl Total Bilirubin 0.9 (0.2-1.0) mg/dL AST 43 H (15-37) U/L ALT 46 (14-59) U/L Alkaline Phosphatase 61 (46-116) U/L Troponin I < 0.017 (0.00-0.056) ng/mL Total Protein 9.3 H (6.4-8.2) g/dl Albumin 3.4 (3.4-5.0) g/dl Globulin 5.9 gm/dL Albumin/Globulin Ratio 0.6 L (1-2) Meds: Medications Generic Name Dose Route Start Last Admin Trade Name Freq PRN Reason Stop Dose Admin Sodium Chloride 10 ml 07/11/18 20:14 07/11/18 20:30 Saline Flush FLUSH 10 ml ASDIRECTED PRN Administration Keep Vein Open Discontinued Medications Generic Name Dose Route Start Last Admin Trade Name Freq PRN Reason Stop Dose Admin Albuterol/Ipratropium 3 ml 07/11/18 21:55 07/11/18 22:07 Duoneb 3.0-0.5 Mg/3 Ml NEB 07/11/18 21:56 3 ml ONETIME ONE Administration Hydromorphone HCl 1 mg 07/11/18 21:17 07/11/18 21:21 Dilaudid IVPUSH 07/11/18 21:18 1 mg ONETIME ONE Administration Sodium Chloride 1,000 mls @ 1,000 mls/hr 07/11/18 20:14 07/11/18 20:30 Normal Saline IV 07/11/18 21:13 1,000 mls/hr .BOLUS STA Administration Sodium Chloride 1,000 mls @ 1,000 mls/hr 07/11/18 21:55 07/11/18 22:03 Normal Saline IV 07/11/18 22:54 1,000 mls/hr ONETIME ONE Administration Ondansetron HCl 4 mg 07/11/18 20:14 07/11/18 20:31 Zofran IVPUSH 07/11/18 20:15 4 mg ONETIME ONE Administration - Re-Assessments/Exams Free Text/Narrative Re-Assessment/Exam: 07/11/18 22:46 I ordered an IV NS 1L bolus, zofran 4mg IV, CXR and labs. Her CXR shows no infiltrates. 07/11/18 22:48 Her CBC looks good with a normal WBC. Her Na was low at 131. Her K was low at 3.1. Her creatinine is elevated slightly at 1.1. Her magnesium is a little low at 1.6. Her AST is slightly elevated at 43. Her troponin is normal. She had cramping abdominal pain now so I ordered dilaudid and a duoneb. She is still dry so I ordered another liter of fluid. She could not give me a stool sample to check her for C-dif. 07/11/18 23:03 She still has the cough. I will give her a dose of phenergan with codeine and she could not take her antibiotic today. I will give her a dose of rocephin 1 gram IV. I also give her and inhaler. I will discharge her home on zofran, phenergan with codeine and I want her to get us some stool so we can check for c -dif. She still could not give us a sample. Departure - Departure Time of Disposition: 23:20 Disposition: Home, Self-Care 01 Condition: Good Clinical Impression: Abdominal pain, Gastroenteritis, Vomiting, Diarrhea, Cough, RSV infection, Hypokalemia - Discharge Information *PRESCRIPTION DRUG MONITORING PROGRAM REVIEWED*: No *COPY OF PRESCRIPTION DRUG MONITORING REPORT IN PATIENT SHIRLEY: No Referrals: Marcelina Robison MD [Primary Care Provider] - Forms: ED Department Discharge Additional Instructions: Keep taking the antibiotics as prescribed. Take the phenergan with codeine every 6 hours as needed for the cough. Take the zofran every 6 hours as needed for the nausea and vomiting. Use the inhaler 2 puffs every 6 hours as needed for wheezing or shortness of breath. Try to get us some stool samples so we can check for clostridium difficile or other bacteria. Drink plenty of fluids and please return if you are worse. - My Orders Last 24 Hours: My Active Orders 07/11/18 20:14 Peripheral IV Care [RC] . DIRECTED Chest 2V [CR] Stat Sodium Chloride 0.9% [Saline Flush] 10 ml FLUSH ASDIRECTED PRN ED Antiemetic Medication Reflex [OM.PC] Stat Peripheral IV Insertion Adult [OM.PC] Stat 07/11/18 21:56 RT Aerosol Therapy [RC] ASDIRECTED 07/11/18 23:01 Codeine/Promethazine [Phenergan with Codeine] 10 ml PO ONETIME ONE 07/11/18 23:02 Albuterol [Proventil HFA] 2 gm INH ONETIME ONE cefTRIAXone [Rocephin] 1 gm Sodium Chloride 0.9% [Normal Saline] 100 ml IV ONETIME 07/11/18 23:03 RT Post Treatment Assessment [RC] Click to Edit RT Pre-Treatment Assessment [RC] Click to Edit - Assessment/Plan Last 24 Hours: My Active Orders 07/11/18 20:14 Peripheral IV Care [RC] . DIRECTED Chest 2V [CR] Stat Sodium Chloride 0.9% [Saline Flush] 10 ml FLUSH ASDIRECTED PRN ED Antiemetic Medication Reflex [OM.PC] Stat Peripheral IV Insertion Adult [OM.PC] Stat 07/11/18 21:56 RT Aerosol Therapy [RC] ASDIRECTED 07/11/18 23:01 Codeine/Promethazine [Phenergan with Codeine] 10 ml PO ONETIME ONE 07/11/18 23:02 Albuterol [Proventil HFA] 2 gm INH ONETIME ONE cefTRIAXone [Rocephin] 1 gm Sodium Chloride 0.9% [Normal Saline] 100 ml IV ONETIME 07/11/18 23:03 RT Post Treatment Assessment [RC] Click to Edit RT Pre-Treatment Assessment [RC] Click to Edit
[2018-07-11] MEDS ORDERED: Codeine/Promethazine 10-6.25 MG/5 ML Syrup 5 ML UD Cup PO ONE (23:01)
[2018-07-11] MEDS ORDERED: Albuterol 6.7 GM Inhaler INH ONE (23:02)
[2018-07-11] MEDS ORDERED: cefTRIAXone 1 GM in Sodium Chloride 0.9% 100 ML IV ONE (23:02)
--- NOTE | 2018-07-12 08:07 | CR ---
Chest: Two views of the chest were obtained. Comparison: No prior chest x-ray. Heart size is normal. Tortuous thoracic aorta is seen. Lungs are clear with no acute parenchymal change. Slight degenerative change is noted within the spine with scoliosis. Opacity is seen overlying the cervical spine raising the possibility of previous cervical spine surgery. Surgical clips are seen from prior cholecystectomy. Impression: 1. Findings felt to be incidental as noted above. 2. Nothing acute is seen on two-view chest x-ray. Diagnostic code #2
== END 2018-07-11 23:54 | disposition home or self-care (01) ==
LOC: JD.ED 19:57
DX: K52.9 Noninfective gastroenteritis and colitis, unspecified (principal); R05 Cough; B97.4 Respiratory syncytial virus as the cause of diseases classified elsewhere; E87.6 Hypokalemia; K21.9 Gastro-esophageal reflux disease without esophagitis; I10 Essential (primary) hypertension; Z88.1 Allergy status to other antibiotic agents; Z79.899 Other long term (current) drug therapy
CPT/HCPCS: 36415; 71046; 80053; 83735; 84484; 85025; 94640; 96361; 96365; 96375; 99284; A9270; J0696; J1170; J2405; J7030; J7040; J7620-GY

== ENCOUNTER 2019-07-21 20:23 | Emergency (ER) | payer MEDICARE, BC ==
[2019-07-21 20:29] VITALS: BP 141/64; PULSE 85
[2019-07-21] MEDS ORDERED: Sodium Chloride 0.9% 1,000 ML IV ONE (20:43)
[2019-07-21] MEDS ORDERED: Ondansetron 4 MG/2 ML SDV IVPUSH ONE (20:43)
[2019-07-21] MEDS ORDERED: HYDROmorphone 0.5 MG/0.5 ML Syringe IVPUSH ONE (20:45)
--- NOTE | 2019-07-21 20:50 | EDM.PDOC ---
ED HPI GENERAL MEDICAL PROBLEM - General Chief Complaint: General Stated Complaint: [facility] Time Seen by Provider: 07/21/19 20:30 Source of Information: Reports: Patient, EMS Notes Reviewed, RN Notes Reviewed History Limitations: Reports: No Limitations - History of Present Illness INITIAL COMMENTS - FREE TEXT/NARRATIVE: Patient is a 69-year-old female who is brought in by [facility] for few different complaints. Patient states that she had left sided knee replacement revision surgery on July 08, and was sent home a few days later with morphine, oxycodone, and oxygen. The patient states that she stopped taking most of her pain medications as she thought they were making her sick, and she notes tonight she feels like she cannot get enough air, she feels flush , and is having pain in her left knee. The ambulance service did give her fentanyl in route to the ER, the pain did seem to subside somewhat after this. Patient states that she is having some nausea, but no vomiting, she states that she is not really been eating or drinking much. Patient denies any chest pain, cough, body aches, fever, but states she has been chilled, and is having some shortness of breath, where "she feels like she cannot get enough air". Otherwise she has no other complaints. Left Knee Pain Score (Numeric/FACES): 10 - Related Data Allergies Allergy/AdvReac Type Severity Reaction Status Date / Time amoxicillin [From Augmentin] Allergy "intoleranc Verified 07/21/19 20:28 e" clavulanic acid Allergy "intoleranc Verified 07/21/19 20:28 [From Augmentin] e" Home Meds: Home Meds Losartan/Hydrochlorothiazide [Losartan-HCTZ 50-12.5 MG] 1 tab PO DAILY 02/11/15 [History] Pantoprazole [ProTONIX] 40 mg PO DAILY PRN 02/11/15 [History] Potassium Chloride 20 meq PO DAILY 10/21/17 [History] Zolpidem Tartrate 10 mg PO DAILY 10/21/17 [History] Magnesium Hydroxide [Milk of Magnesia] 30 ml PO BID PRN cup 10/24/17 [Rx] Sennosides [Senna] 8.6 mg PO BID PRN tablet 10/24/17 [Rx] Past Medical History HEENT History: Reports: Impaired Vision Other HEENT History: Wears Cardiovascular History: Reports: Hypertension, Other (See Below) Other Cardiovascular History: Hypokalemia Gastrointestinal History: Reports: GERD SYSTEMS TECHNOLOGIST History: Reports: Other SYSTEMS TECHNOLOGIST History: Endocervical Polyp Removal, Menopause, Musculoskeletal History: Reports: Neck Pain, Chronic, Osteoarthritis Other Musculoskeletal History: Disc repair. Dermatologic History: Reports: Other (See Below) Other Dermatologic History: Lipomas to bilateral upper thighs sx - Past Surgical History GI Surgical History: Reports: Cholecystectomy Neurological Surgical History: Reports: Other (See Below) Other Neurological Surgeries/Procedures: Cervical Disc Replacement Musculoskeletal Surgical History: Reports: Arthroscopic Knee, Knee Replacement, Other (See Below) Other Musculoskeletal Surgeries/Procedures:: L. TK, R. CTR, R. Ulnar Nerve Sx, L. Knee Arthroscopy, Chronic Sciatica Left Side, Left Hip Pain Social & Family History - Tobacco Use Smoking Status *Q: Never Smoker - Caffeine Use Caffeine Use: Reports: None ED ROS GENERAL - Review of Systems Review Of Systems: See Below Constitutional: Reports: Chills, Diaphoresis, Decreased Appetite. Denies: Fever , Malaise Respiratory: Reports: Shortness of Breath (states it is hard to catch her breath , but is in no respiratory distress). Denies: Cough Cardiovascular: Denies: Chest Pain GI/Abdominal: Reports: Nausea. Denies: Abdominal Pain, Vomiting Skin: Reports: Wound (well healing surgical wound to L knee). Denies: Erythema ED EXAM, GENERAL - Physical Exam Exam: See Below Exam Limited By: No Limitations General Appearance: Alert, WD/WN, No Apparent Distress Eye Exam: Bilateral Eye: EOMI, Normal Inspection, PERRL Ears: Normal External Exam Nose: Normal Inspection Throat/Mouth: Normal Inspection, Normal Lips, Normal Teeth, Normal Gums, Normal Oropharynx, Normal Voice, No Airway Compromise Head: Atraumatic, Normocephalic Neck: Normal Inspection Respiratory/Chest: No Respiratory Distress, Lungs Clear, Normal Breath Sounds, No Accessory Muscle Use, Chest Non-Tender Cardiovascular: Normal Peripheral Pulses, Regular Rate, Rhythm, No Murmur Peripheral Pulses: 3+: Radial (L), Radial (R), Dorsalis Pedis (L), Dorsalis Pedis (R) GI/Abdominal: Normal Bowel Sounds, Soft, Non-Tender, No Distention, No Mass Extremities: Normal Inspection, Normal Capillary Refill, Pedal Edema (slight edema noted to bilateral extremities 1+) Neurological: Alert, Oriented, Normal Cognition, No Motor/Sensory Deficits Psychiatric: Anxious (slightly) Skin Exam: Warm, Dry, Intact, Normal Color, No Rash, Wound/Incision (well healing surgical wound to anterior left knee) Course - Vital Signs Last Recorded V/S: Last Vital Signs Temp 98.4 F 07/21/19 20:25 Pulse 85 07/21/19 20:25 Resp 16 07/21/19 20:25 BP 141/64 H 07/21/19 20:25 Pulse Ox 95 07/21/19 20:25 - Orders/Labs/Meds Labs: Laboratory Tests 07/21/19 07/21/19 07/21/19 Range/Units 20:56 20:56 20:56 WBC 7.69 (3.98-10.04) K/mm3 RBC 4.39 (3.98-5.22) M/mm3 Hgb 12.4 (11.2-15.7) gm/dl Hct 39.0 (34.1-44.9) % MCV 88.8 (79.4-94.8) fl MCH 28.2 (25.6-32.2) pg MCHC 31.8 L (32.2-35.5) g/dl RDW Std Deviation 49.2 H (36.4-46.3) fL Plt Count 469 H D (182-369) K/mm3 MPV 8.9 L (9.4-12.3) fl Neutrophils % (Manual) 83 H (40-60) % Band Neutrophils % 0 (0-10) % Lymphocytes % (Manual) 9 L (20-40) % Atypical Lymphs % 0 % Monocytes % (Manual) 6 (2-10) % Eosinophils % (Manual) 2 (0.7-5.8) % Basophils % (Manual) 0 L (0.1-1.2) Platelet Estimate Adequate Plt Morphology Comment Normal RBC Morph Comment Normal D-Dimer, Quantitative 12.36 H (0.19-0.50) mg/L Sodium 136 (136-145) mEq/L Potassium 3.2 L (3.5-5.1) mEq/L Chloride 100 (98-107) mEq/L Carbon Dioxide 25 (21-32) mEq/L Anion Gap 14.2 (5-15) BUN 10 (7-18) mg/dL Creatinine 1.1 H (0.55-1.02) mg/dL Est Cr Clr Drug Dosing 46.46 mL/min Estimated GFR (MDRD) 50 (>60) mL/min BUN/Creatinine Ratio 9.1 L (14-18) Glucose 113 (80-115) mg/dL Calcium 9.8 (8.5-10.1) mg/dL Total Bilirubin 0.7 (0.2-1.0) mg/dL AST 27 (15-37) U/L ALT 29 (14-59) U/L Alkaline Phosphatase 81 (46-116) U/L NT-Pro-B Natriuret Pep (0-125) pg/mL Total Protein 9.3 H (6.4-8.2) g/dl Albumin 3.5 (3.4-5.0) g/dl Globulin 5.8 gm/dL Albumin/Globulin Ratio 0.6 L (1-2) Urine Color (Yellow) Urine Appearance (Clear) Urine pH (5.0-8.0) Ur Specific [place] (1.005-1.030) Urine Protein (Negative) Urine Glucose (UA) (Negative) Urine Ketones (Negative) Urine Occult Blood (Negative) Urine Nitrite (Negative) Urine Bilirubin (Negative) Urine Urobilinogen (0.2-1.0) Ur Leukocyte Esterase (Negative) Urine RBC (0-5) /hpf Urine WBC (0-5) /hpf Ur Squamous Epith Cells (0-5) /hpf Urine Bacteria (FEW) /hpf Urine Mucus (FEW) /hpf 07/21/19 07/21/19 Range/Units 20:56 21:50 WBC (3.98-10.04) K/mm3 RBC (3.98-5.22) M/mm3 Hgb (11.2-15.7) gm/dl Hct (34.1-44.9) % MCV (79.4-94.8) fl MCH (25.6-32.2) pg MCHC (32.2-35.5) g/dl RDW Std Deviation (36.4-46.3) fL Plt Count (182-369) K/mm3 MPV (9.4-12.3) fl Neutrophils % (Manual) (40-60) % Band Neutrophils % (0-10) % Lymphocytes % (Manual) (20-40) % Atypical Lymphs % % Monocytes % (Manual) (2-10) % Eosinophils % (Manual) (0.7-5.8) % Basophils % (Manual) (0.1-1.2) Platelet Estimate Plt Morphology Comment RBC Morph Comment D-Dimer, Quantitative (0.19-0.50) mg/L Sodium (136-145) mEq/L Potassium (3.5-5.1) mEq/L Chloride (98-107) mEq/L Carbon Dioxide (21-32) mEq/L Anion Gap (5-15) BUN (7-18) mg/dL Creatinine (0.55-1.02) mg/dL Est Cr Clr Drug Dosing mL/min Estimated GFR (MDRD) (>60) mL/min BUN/Creatinine Ratio (14-18) Glucose (80-115) mg/dL Calcium (8.5-10.1) mg/dL Total Bilirubin (0.2-1.0) mg/dL AST (15-37) U/L ALT (14-59) U/L Alkaline Phosphatase (46-116) U/L NT-Pro-B Natriuret Pep 54 (0-125) pg/mL Total Protein (6.4-8.2) g/dl Albumin (3.4-5.0) g/dl Globulin gm/dL Albumin/Globulin Ratio (1-2) Urine Color Light yellow (Yellow) Urine Appearance Clear (Clear) Urine pH 7.0 (5.0-8.0) Ur Specific [place] 1.015 (1.005-1.030) Urine Protein Negative (Negative) Urine Glucose (UA) Negative (Negative) Urine Ketones 1+ H (Negative) Urine Occult Blood Negative (Negative) Urine Nitrite Negative (Negative) Urine Bilirubin Negative (Negative) Urine Urobilinogen 0.2 (0.2-1.0) Ur Leukocyte Esterase Negative (Negative) Urine RBC Not seen (0-5) /hpf Urine WBC 0-5 (0-5) /hpf Ur Squamous Epith Cells 0-5 (0-5) /hpf Urine Bacteria Rare (FEW) /hpf Urine Mucus Not seen (FEW) /hpf Meds: Medications Discontinued Medications Generic Name Dose Route Start Last Admin Trade Name Freq PRN Reason Stop Dose Admin Apixaban 2.5 mg 07/21/19 21:44 07/21/19 22:10 Eliquis PO 07/21/19 21:45 2.5 mg ONETIME ONE Administration Hydromorphone HCl 0.5 mg 07/21/19 20:45 07/21/19 20:57 Dilaudid IVPUSH 07/21/19 20:46 0.5 mg ONETIME ONE Administration Sodium Chloride 1,000 mls @ 999 mls/hr 07/21/19 20:43 07/21/19 20:57 Normal Saline IV 07/21/19 21:43 999 mls/hr ONETIME ONE Administration Sodium Chloride 45 mls @ 40 mls/hr 07/21/19 21:45 07/21/19 22:14 Normal Saline IV 40 mls/hr ASDIRECTED COLLINS Administration Iopamidol 150 ml 07/21/19 21:45 07/21/19 22:14 Isovue-370 (76%) IARTIC 07/21/19 21:46 150 ml ONETIME ONE Administration Ondansetron HCl 4 mg 07/21/19 20:43 07/21/19 20:57 Zofran IVPUSH 07/21/19 20:44 4 mg ONETIME ONE Administration Sodium Chloride 10 ml 07/21/19 21:45 07/21/19 22:14 Saline Flush FLUSH 10 ml ONETIME PRN Administration Keep Vein Open - Re-Assessments/Exams Free Text/Narrative Re-Assessment/Exam: 07/21/19 20:54 Patient presents to the ED for evaluation of sudden onset shortness of breath after knee surgery on July 08. Have ordered a chest x-ray, some basic labs, d- dimer, some IV fluids, Zofran and 0.5 mg Dilaudid for further management. The patient states that she stopped taking most of the opioid pain medications herself, as she though it was making her sick, I am highly suspicious that these are more withdrawal type symptoms at this time. 07/21/19 21:41 The patient's laboratory evaluation does come back, CBC is essentially within normal limits, metabolic panel is essentially within normal limits, creatinine is mildly elevated at 1.1, and her d-dimer is markedly elevated at 12.36. At this time I will order a chest CT with angiogram for evaluation of a pulmonary embolus at this time. Patient states she does take Eliquis, she did take her medication this morning but has not taken her nighttime dose as she came to the ER. The patient's chest x-ray does demonstrate an area in the right lower lung that is suspicious for consolidation or infiltrates versus atelectasis in nature , with some fluid in the fissure noted on the lateral films as well. Dr. Mixon did review these x-rays with me, official radiology read is pending. 07/21/19 22:[address] angios of her chest is done, and is read as follows 1. Heart size at the upper limits of normal but with suspected left ventricular hypertrophy. 2 suspect early cardiac decompensation with minimal basilar pulmonary edema. 3. Cholecystectomy, CBD estimated 13 mm in diameter, cannot exclude choledocholithiasis 4. no definite pulmonary emboli are noted. At this time I will recommend that the patient use an incentive spirometer if she does not have one already, she will be instructed on 1, on a more frequent basis, and that she follow-up with her regular provider for possible echocardiogram of her heart. Departure - Departure Time of Disposition: 22:31 Disposition: Home, Self-Care 01 Condition: Fair Clinical Impression: Anxiety about health, Mild shortness of breath - Discharge Information *PRESCRIPTION DRUG MONITORING PROGRAM REVIEWED*: No *COPY OF PRESCRIPTION DRUG MONITORING REPORT IN PATIENT SHIRLEY: No Instructions: Shortness of Breath, Adult, [id number] Referrals: PCP,Unknown [Ordering Only Provider] - Forms: ED Department Discharge Additional Instructions: You were evaluated in the ER today for your sudden onset shortness of breath and chills. Your laboratory evaluation demonstrated the possibility of a blood clot in your lung by your elevated D-dimer test. You did have a chest CT and it did not show any evidence of a blood clot (pulmonary embolus) in your lung . Keep taking your Eliquis as previously prescribed to help prevent blood clots. The D-dimer is a non-specific test that checks for the break down of clots in the body. As you have had recent surgery, it can be slightly elevated while the body is healing. Your chest CT demonstrated that your heart size is at the upper limits of normal , and suspects left ventricular hypertrophy, which would mean that you have an enlarged heart. If you have not had an echocardiogram done, recommend that you talk with your primary care provider to schedule one on outpatient basis for further evaluation. Recommend that you take your pain medicine as prescribed. Recommend that you take one or the other, and not both. The oxycodone is going to be less strong, but still should provide you with good pain relief. Please try to wean or taper yourself off of this medication rather than stop taking it completely all at once. It is likely that the symptoms you were experiencing tonight are due to some slight anxiety. Recommend that you start taking 1-2 tabs Aleve (naproxen) BID or 600mg Advil/ Motrin (ibuprofen) Q6H for pain while you are tapering off the opioid pain medication to help transition your body to a pain level that is tolerable. Please return to the ED at anytime if your symptoms change or worsen. Sepsis Event Note - Evaluation Sepsis Screening Result: No Definite Risk - Focused Exam Date Exam was Performed: 07/22/19 Time Exam was Performed: 21:09
[2019-07-21] MEDS ORDERED: Apixaban 2.5 MG Tab PO ONE (21:44)
[2019-07-21] MEDS ORDERED: Sodium Chloride 0.9% 45 ML IV SCH (21:45)
[2019-07-21] MEDS ORDERED: Iopamidol 755 MG/ML 50 ML Bottle IARTIC ONE (21:45)
[2019-07-21] MEDS: Sodium Chloride 0.9% 10 ML Syringe FLUSH PRN ×2 (22:10→22:14)
--- NOTE | 2019-07-22 10:48 | CT ---
CT chest Technique: Multiple axial sections through the chest were obtained. Intravenous contrast was utilized. Study has been performed as a pulmonary angiogram protocol. Findings: Pulmonary arteries are moderately well-opacified. Distal subsegmental pulmonary emboli not well seen. No filling defects within the main or segmental branches are seen. Smaller subsegmental distal pulmonary emboli could be missed. Aorta shows atherosclerotic change without aneurysm. Mediastinum shows no adenopathy. No pericardial thickening is identified. Visualized upper abdominal structures shows nothing acute. Surgical clips are seen from prior cholecystectomy. Common bile duct mildly prominent in size measuring 1.5 cm. This most likely relates to previous cholecystectomy. Lungs show no acute parenchymal change. Slight fibrosis seen within both lung bases as well as mild scarring. Impression: 1. No definite pulmonary emboli are seen as described above. 2. Mild bibasilar fibrosis and scarring. 3. Dilated CBD possibly relating to previous cholecystectomy. 4. Nothing acute is definitely appreciated. Diagnostic code #2 Mostly agree with preliminary report issued by [facility] ([facility] preliminary report dictated on 07/21/19, 11:39 PM Central Daylight Time) Study was dictated in MDT
--- NOTE | 2019-07-22 10:48 | CR ---
Chest: 2 views of the chest were obtained. Parison: Prior chest x-ray of 07/11/18. Heart size at the upper limits of normal. Tortuous thoracic aorta is seen. Previous cervical spine surgery is noted. Slight atelectasis within the left lung base is noted. Lungs otherwise are clear with no acute parenchymal change. Surgical clips are seen from prior cholecystectomy. Impression: 1. Slight atelectasis within the left lung base. 2. Other findings as noted above. Nothing acute is seen. Diagnostic code #2 Study was dictated in MDT
== END 2019-07-21 23:13 | disposition home or self-care (01) ==
LOC: JD.ED 20:23
DX: F41.9 Anxiety disorder, unspecified (principal); K21.9 Gastro-esophageal reflux disease without esophagitis; I10 Essential (primary) hypertension; Z79.899 Other long term (current) drug therapy; Z88.1 Allergy status to other antibiotic agents
CPT/HCPCS: 36415; 71046; 71275; 80053; 81001; 83880; 85007; 85027; 85379; 96361; 96374; 96375; 99285; A9270; J1170; J2405; J7030; J7050; Q9967; 99284

== ENCOUNTER 2021-04-06 15:30 | Emergency (ER) | payer OTHER, MEDICARE, BC ==
[2021-04-06 17:22] VITALS: PULSE 78
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
[2021-04-06] MEDS ORDERED: Morphine 4 MG/ML Syringe IVPUSH PRN (18:28)
[2021-04-06] MEDS ORDERED: Ondansetron 4 MG/2 ML SDV IVPUSH ONE (18:29)
[2021-04-06] MEDS: Sodium Chloride 0.9% 10 ML Syringe FLUSH PRN ×2 (18:50→20:38)
[2021-04-06] MEDS ORDERED: Ketorolac 15 MG/ML SDV IVPUSH ONE (19:56)
--- NOTE | 2021-04-06 20:12 | CT ---
CT chest Technique: Multiple axial sections through the chest were obtained. Intravenous contrast was utilized. Reconstructed coronal and sagittal images were obtained. Comparison: Prior CT chest study of 07/21/19. Findings: Thoracic aorta shows atherosclerotic change with no aneurysm. Mediastinum shows no adenopathy. No mediastinal hematoma is seen. No axillary adenopathy is noted. No pericardial fluid is seen. Lung window settings were reviewed. Slight atelectasis is noted within the left lung base. Lungs otherwise are clear. No pleural effusions or pneumothorax are seen. Bone window settings were reviewed. Prior cervical spine surgery is noted. Mild scattered degenerative change is noted within the thoracic spine. No acute osseous abnormality is appreciated. Impression: 1. Mild left basilar atelectasis. 2. Other findings as noted above. 3. Nothing acute is seen on CT study of the chest. Diagnostic code #2 CT abdomen and pelvis Technique: Multiple axial sections were obtained from above the dome of the diaphragm inferiorly through the pubic symphysis. Intravenous contrast was utilized. Delayed images were also obtained through the pelvis. Reconstructed coronal and sagittal images were obtained. Comparison: Prior CT abdomen and pelvis study of 12/11/09. Findings: Liver shows no focal parenchymal abnormality. Surgical clips are noted from prior cholecystectomy. Common bile duct is mildly enlarged which is felt compatible with previous cholecystectomy. Spleen size is normal. Pancreas shows no discrete abnormality. Adrenal glands show no nodule. Kidneys show symmetric contrast enhancement. Minimal low density lesion is seen within the anterior left kidney which is felt compatible with a small cyst measuring 5 mm. Abdominal aorta shows no aneurysm. No retroperitoneal adenopathy is seen. No mesenteric abnormalities are seen. Diverticuli are seen within the sigmoid colon with no inflammatory change. No pelvic mass or adenopathy is seen. No free fluid is seen. Appendix is seen and is normal in size. Minimal fat-containing umbilical hernia is incidentally noted. No bowel dilatation or bowel wall thickening is seen. Delayed images show contrast within the ureters as well as contrast within the bladder. Bone window settings were reviewed. Scattered disc space narrowing is seen throughout the lumbar spine with mild anterior osteophytes. Mild scattered degenerative osteophytes are noted within the lumbar spine. Slight degenerative change is seen within the sacroiliac joints as well as degenerative change within the right hip. No acute osseous abnormality is appreciated. Impression: 1. Findings which are felt to be chronic as described above. 2. No acute abnormality is appreciated on CT study of the abdomen and pelvis. Diagnostic code #2
[2021-04-06] MEDS ORDERED: Morphine 4 MG/ML Syringe IVPUSH ONE (20:26)
[2021-04-06] MEDS ORDERED: Iopamidol 612 MG/ML 50 ML SDV IVPUSH ONE (20:37)
[2021-04-06] MEDS ORDERED: Iopamidol 612 MG/ML 100 ML Bottle IVPUSH ONE (20:37)
[2021-04-06] MEDS ORDERED: Acetaminophen/HYDROcodone 325-5 MG Tab PO ONE (20:49)
[2021-04-06] MEDS ORDERED: Acetaminophen/HYDROcodone 325-10 MG Tab PO ONE (20:50)
[2021-04-06 21:25] VITALS: BP 135/74
--- NOTE | 2021-04-07 08:12 | CR ---
Chest: PA and lateral views of the chest were obtained. Comparison: Prior chest x-ray of 07/21/19. Heart size and mediastinum are normal. Surgical material is seen overlying the cervical spine compatible with prior surgery. Minimal atelectasis is seen within the left lung base. Lungs otherwise are clear. Bony structures show nothing acute. Impression: 1. Mild left basilar atelectasis. 2. Nothing acute is seen on 2-view chest x-ray. Diagnostic code #2
== END 2021-04-06 21:01 | disposition home or self-care (01) ==
LOC: JD.ED 15:30
DX: S29.9XXA Unspecified injury of thorax, initial encounter (principal); I10 Essential (primary) hypertension; K21.9 Gastro-esophageal reflux disease without esophagitis; Z88.0 Allergy status to penicillin; Z88.1 Allergy status to other antibiotic agents; Z79.899 Other long term (current) drug therapy; V47.5XXA Car driver injured in collision with fixed or stationary object in traffic accident, initial encounter
CPT/HCPCS: 36415; 71046; 71260; 74177; 80053; 85025; 93005; 96374; 96375; 99284; A9270; J1885; J2270; J2405; Q9967